=== PATIENT | male | born 1945 | race Caucasian/White ===

== ENCOUNTER 2024-10-04 11:15 | Outpatient (AMB) | payer OTHER, SELFPAY ==
--- NOTE | 2024-10-04 11:17 | MHC.OFFVIS ---
Vital Signs 10/04/24 11:20 Height 6 ft Weight 179 lb BMI 24.3 BP 112/64 Blood Pressure Location Rt brachial Position Sitting Pulse 94 Pulse Source Pulse Oximeter Pulse Oximetry (%) 99 Oxygen Delivery Method Room Air Intake Visit Reasons: ENP- Hand Tremors Intake Note: Patient referred by [place] for hand tremors Allergies aspirin Allergy (Unknown, Verified 10/04/24 11:20) Unknown HPI Comments Details: 79y/o Right handed male comes for evaluation of tremors. He started noticing tremors in his left hand 3-4 years ago and spread to his right hand. The tremors are mostly with posture and action but with stress it can be at rest . He was seen by at [facility]- had MRI - showed a small stroke in Basal ganglia.He was started on carbidopa/levodopa 25/100 tid and it is helping. Memory- good , occasional lapses Mood- mild depression Sleep- loud snoring , sleep study showed mild SHRUTHI , active dreams Speech- fine He has some nighttime drooling Handwriting is worse No problems with eating dressing showering turning in bed. Gait- mild balance issues , shuffles. No falls Bowel movements- constipation- takes miralax He has occasional dizziness with posture changes. 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 Localized edema Hypertensive heart disease without CHF Hyperparathyroidism Cerebral infarction BPH (benign prostatic hyperplasia) Osteoporosis Surgical History History of pancreatic surgery History of hip replacement Family History Father Cancer Social History Alcohol intake: never Patient Tobacco Use Status: Never used Tobacco Physical Exam Vital Signs: Last Vital Signs Pulse 94 10/04/24 11:20 BP 112/64 10/04/24 11:20 Pulse Ox 99 10/04/24 11:20 Oxygen Delivery Method Room Air 10/04/24 11:20 BMI result Body Mass Index 24.3 Const General: cooperative, healthy appearing, comfortable and no acute distress Nutritional Appearance: average body habitus Orientation/consciousness: patient oriented x3 Limitations: no limitations Eyes Pupils: Equal, round and reactive pupils present Neuro Other: Mallampatti grade 4 Mild decreased facial expression and blink No tremors Mild Cogwheel rigidity - right UE 2+ FFM and foot taps - decreased nino R>L Foot taps - mildly decreased R>L Gait- mild off balance , mild stoop Decreased arm swings nino decreased facial expression on the right - asymmetry General: patient oriented x3, moves all extremities and no focal motor deficits Cranial nerves: Yes Facial sensation intact/muscles of mastication intact, Yes Equal, round and reactive pupils present, Yes Bilaterally intact EOM present, Yes Nystagmus not present, Yes Midline tongue present and Yes Ability to bilaterally elevate shoulders present Cognition (Neuro): normal cognition Motor exam (neuro): 5/5 motor strength present throughout Deep tendon reflexes (DTR's): Right triceps reflex intensity grade: 1+, Left triceps reflex intensity grade: 1+, Rt Biceps (C5, C6): 1+, Left biceps reflex intensity grade: 1+, Right brachioradialis reflex intensity grade: 1+, Left brachioradialis reflex intensity grade: 1+, Right patellar reflex intensity grade: 1+ and Left patellar reflex intensity grade: 1+ Coordination: [id number]-[id number] test normal Assessment & Plan Assessment & Plan (1) Parkinsons: Comment: secondary Code(s): G20.A1 - Parkinson's disease without dyskinesia, without mention of fluctuations Category: Medical Qualifiers: Dyskinesia presence: without dyskinesia Fluctuating manifestations: without fluctuating manifestations Qualified Code(s): G20.A1 - Parkinson's disease without dyskinesia, without mention of fluctuations Plan Continue carbidopa/levodopa 25/100 tid Entacapone 200 mg tid PT for gait training [facility] Orders: Orders PT Evaluation and Treatment Today G20.A1 - Parkinson's disease without dyskinesia, without mention of fluctuations Medications: New carbidopa-levodopa 25-100 mg 1 tab PO TID 90 days 270 tabs 6RF entacapone 200 mg PO 3XD 90 days 270 tabs 6RF Coding Level of Care Code New Pt Level 4 (71655) Diagnoses Parkinson's disease without dyskinesia or fluctuating manifestations G20.A1 Dyskinesia presence: without dyskinesia Fluctuating manifestations: without fluctuating manifestations
[2024-10-04 11:20] VITALS: BP 112/64; PULSE 94; O2SAT 99; BMI 24.3
--- OUTSIDE RECORDS SUMMARY | 2024-10-04 12:31 | XMS_ITS | Clinical Summary ---
Author Organization [address] [place] [address] [place] [phone] Phone Care Team Providers Care Warehouse Consultant Name Role Phone Phoebe Radford MD Primary Care Provider [phone] Encounters Date Type Department Care Team Description 07/05/2024 2:45 PM EST Office Visit Walk-[facility] - [address] [phone] Phi Guido PA Cellulitis of left upper extremity (Primary Dx) from Last 3 Months Social History Tobacco Use Types Packs/Day Years Used Date Smoking Tobacco: Never Assessed Sex and Gender Information Value Date Recorded Sex Assigned at Not on file Legal Sex Male 2:50 AM EST Gender Identity Not on file Sexual Orientation Not on file Plan of Treatment Health Maintenance Due Date Last Done Comments Diabetes: Annual Foot Exam 1955 Diabetes: Annual Retina Eye Exam 1955 Pneumococcal Vaccine: 50+ Years (2 of 2 - PPSV23) 12/26/2014 10/31/2014, 11/25/2010 Cholesterol Screening (Lipid Panel) 09/15/2023 Depression Screening 09/15/2023 Falls Risk Assessment 09/15/2023 Hepatitis C Screening 09/15/2023 Medicare Annual Wellness Visit 09/15/2023 Social Influencers of Health Screening 09/15/2023 Diabetes: Annual GFR (Glomerular Filtration Rate) 01/30/2024 01/29/2023, 01/29/2023 Diabetes: Annual Urine Albumin-Creatinine Ratio (uACR) 07/05/2024 Diabetes: Blood Sugar Control Test (HGBA1C) 07/05/2024 Hypertension/CHF/CAD Annual BMP Blood Test 07/05/2024 01/29/2023, 01/29/2023 DTaP,Tdap,and Td Vaccines (3 - Td or Tdap) 2025 2015, 11/25/2010 Zoster Vaccines Completed 12/09/2017, 09/18, 09/06/2009 RSV Immunization Patients 60+ Years Old Completed 06/29/2023 COVID-19 Vaccine Completed 05/25/2024, 04/2023, 02/11/2022, Additional history exists Influenza Vaccine Completed 05/25/2024, , 05/25/2023, Additional history exists HIB Vaccines Aged Out No longer eligi ble based on patient's age to complete this topic HPV Vaccines Aged Out No longer eligi ble based on patient's age to complete this topic Hepatitis A Vaccines Aged Out No long er eligible based on patient's age to complete this topic Hepatitis B Vaccines Aged Out No long er eligible based on patient's age to complete this topic IPV Vaccines Aged Out No longer eligi ble based on patient's age to complete this topic MMR Vaccines Aged Out No longer eligi ble based on patient's age to complete this topic Meningococcal ACWY Vaccine Aged Out N o longer eligible based on patient's age to complete this topic Meningococcal B Vacine Aged Out No lo nger eligible based on patient's age to complete this topic RSV Immunization Patients Under 20 months Aged Out No longer eligible based on patient's age to complete this topic Varicella Vaccines Aged Out No longer eligible based on patient's age to complete this topic Insurance MEDICARE [facility] Advance Directives Documents on File Type Date Recorded Patient Sterilization Technician Expl anation Health Care Decision (hx) 06/03/2013 AD MCDANIEL DIRECTIVE Health Care Decision (hx) 06/03/2013 AD MCDANIEL DIRECTIVE Health Care Decision (hx) 05/25/2013 AD MCDANIEL DIRECTIVE Health Care Decision (hx) 05/25/2013 AD MCDANIEL DIRECTIVE Care Teams Warehouse Consultant Relationship Specialty Start Date End Date Phoebe Radford MD [address] [place] [address] PCP - General Internal Medicine 07/05/24
--- OUTSIDE RECORDS SUMMARY | 2024-10-04 12:31 | XMS_ITS | Clinical Summary ---
Author Organization [facility] Address [address] [place] [address] Care Team Providers Care Naphthalene Operator Name Role Phone Phoebe Radford MD Primary Care Provider [phone] Allergies Active Allergy Reactions Criticality Noted Date Comments Dust Mite Extract Unknown/Patient and Family Unable to Define Medium 01/29/2023 Trichophyton Unknown/Patient and Family Unable to Define Medium 01/29/2023 Social History Tobacco Use Types Packs/Day Years Used Date Smoking Tobacco: Never Assessed Sex and Gender Information Value Date Recorded Sex Assigned at Male 01/29/2023 7:52 PM EDT Gender Identity Male 01/29/2023 7:52 PM EDT Sexual Orientation Heterosexual (straight) 01/29 7:52 PM EDT Last Filed Vital Signs Vital Sign Reading Time Taken Comments Blood Pressure 156/67 01/29/2023 6:18 PM EDT Pulse 71 01/29/2023 6:18 PM EDT Temperature 36.7 ??C (98 ??F) 01/29/2023 6:18 PM EDT Respiratory Rate 18 01/29/2023 6:18 PM EDT Oxygen Saturation 99% 01/29/2023 8:52 PM EDT Inhaled Oxygen Concentration - - Weight - - Height - - Body Mass Index - - Plan of Treatment Health Maintenance Due Date Last Done Comments Hepatitis C Virus Screening 1945 DTaP/Tdap/Td Vaccines (1 - Tdap) 1964 Pneumococcal Vaccines 50+ (1 of 1 - PCV) 1995 Zoster (Shingles) Vaccine (1 of 2) 1995 RSV Vaccine 60 years and old er and Patients (1 - 1-dose 75+ series) 2020 Influenza Vaccine 03/17/2024 COVID-19 Vaccine ( - 2023-2 5 season) 2024 Hepatitis B Vaccines Aged Out No long er eligible based on patient's age to complete this topic Care Teams Naphthalene Operator Relationship Specialty Start Date End Date Phoebe Radford MD [address] [place] [address] PCP - General Internal Medicine 01/29/23
== END 2024-10-04 11:58 | disposition home or self-care (01) ==
PROVIDERS: PCP Family Medicine; Visit Provider Psychiatry & Neurology Neurology
DX: G20.A1 Parkinson's disease without dyskinesia, without mention of fluctuations (principal)
CPT/HCPCS: 99204

== ENCOUNTER → 2024-10-04 11:15 | Outpatient (BNVA) | payer OTHER, SELFPAY | PROVIDERS: PCP Family Medicine; Visit Provider Psychiatry & Neurology Neurology | DX: G20.A1 Parkinson's disease without dyskinesia, without mention of fluctuations (principal) | CPT/HCPCS: 99202 ==

== ENCOUNTER 2025-04-05 10:37 | Outpatient (AMB) | payer OTHER, SELFPAY ==
--- NOTE | 2025-04-05 10:39 | A.OFFVIS_ITS ---
Vital Signs 04/05/25 10:40 Height 6 ft Weight 180 lb 4 oz BMI 24.4 BP 122/64 Blood Pressure Location Rt brachial Position Sitting Pulse 80 Pulse Source Pulse Oximeter Pulse Oximetry (%) 96 Oxygen Delivery Method Room Air Intake Visit Reasons: Follow up Hand Tremors Intake Note: Follow up Parkinson's Engraver Apprentice Decorative Required: No Accompanied by: Self / Same As Patient Allergies aspirin Allergy (Unknown, Verified 04/05/25 10:43) Unknown Medication List - Last Reconciled 04/05/25 by Harnii Johnston MD amlodipine 10 mg PO DAILY amoxicillin 2,000 mg PO atorvastatin 40 mg PO DAILY blood sugar diagnostic (Accu-Chek Guide test strips) As directed blood-glucose sensor As directed calcium citrate mg PO carbidopa-levodopa 25-100 mg 1 tab PO TID 90 days cholecalciferol (vitamin D3) 50 mcg PO cyclosporine 0.05% 1 drp ophthalmic (eye) Q12H denosumab 60 mg subcut [id number] duloxetine 60 mg PO DAILY entacapone 200 mg PO 3XD 90 days gabapentin 900 mg PO BEDTIME gabapentin 300 mg PO DAILY hydrochlorothiazide 25 mg PO DAILY hylan g-f 20 (Synvisc-One) mg intra-articular insulin aspart U-100 (Novolog U-100 Insulin aspart) 20 units subcut TID lidocaine 5% topical wpcqxr-xhamkedw-tnvvteh 24,000-76,000 -120,000 unit (Creon) 3 caps PO TID lisinopril 40 mg PO DAILY omeprazole 20 mg PO DAILY sennosides 8.6 mg PO BEDTIME sildenafil 100 mg PO DAILY PRN tamsulosin mg PO testosterone cypionate 100 mg IM Q2W HPI Comments Details: 79y/o Right handed male comes for follow up of parkinsons . He has spinal stenosis and is seeing pain management. He has more drooling He frequently forgets his medications. He is not sleeping well because of back pain , restless legs etc PT did not help his back He is taking gabapentin 900mg qhs History from initial visit -. He started noticing tremors in his left hand 3-4 years ago and spread to his right hand. The tremors are mostly with posture and action but with stress it can be at rest . He was seen by at [facility]- had MRI - showed a small stroke in Basal ganglia.He was started on carbidopa/levodopa 25/100 tid and it is helping. Memory- good , occasional lapses Mood- mild depression Sleep- loud snoring , sleep study showed mild SHRUTHI , active dreams Speech- fine He has some nighttime drooling Handwriting is worse No problems with eating dressing showering turning in bed. Gait- mild balance issues , shuffles. No falls Bowel movements- constipation- takes miralax He has occasional dizziness with posture changes. 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 Localized edema Hypertensive heart disease without CHF Hyperparathyroidism Cerebral infarction BPH (benign prostatic hyperplasia) Osteoporosis Surgical History History of pancreatic surgery History of hip replacement Family History Father Cancer Social History Alcohol intake: never Patient Tobacco Use Status: Never used Tobacco Physical Exam Vital Signs: Last Vital Signs Pulse 80 04/05/25 10:40 BP 122/64 04/05/25 10:40 Pulse Ox 96 04/05/25 10:40 Oxygen Delivery Method Room Air 04/05/25 10:40 BMI result Body Mass Index 24.4 Const General: cooperative, healthy appearing, comfortable and no acute distress Nutritional Appearance: average body habitus Orientation/consciousness: patient oriented x3 Limitations: no limitations Eyes Pupils: Equal, round and reactive pupils present Neuro Other: Mallampatti grade 4 Mild decreased facial expression and blink No tremors Mild Cogwheel rigidity - right UE 1+ FFM and foot taps - decreased inno R>L Foot taps - mildly decreased R>L Gait- mild off balance , mild stoop Decreased arm swings nino decreased facial expression on the right - asymmetry General: patient oriented x3, moves all extremities and no focal motor deficits Cranial nerves: Yes Facial sensation intact/muscles of mastication intact, Yes Equal, round and reactive pupils present, Yes Bilaterally intact EOM present, Yes Nystagmus not present, Yes Midline tongue present and Yes Ability to bilaterally elevate shoulders present Cognition (Neuro): normal cognition Motor exam (neuro): 5/5 motor strength present throughout Coordination: oizkry-kw-dluu test normal Assessment & Plan Assessment & Plan (1) Parkinsons: Comment: secondary Code(s): G20.A1 - Parkinson's disease without dyskinesia, without mention of fluctuations Category: Medical Qualifiers: Dyskinesia presence: without dyskinesia Fluctuating manifestations: without fluctuating manifestations Qualified Code(s): G20.A1 - Parkinson's disease without dyskinesia, without mention of fluctuations Plan Continue carbidopa/levodopa 25/100 tid Entacapone 200 mg tid PT for gait training Coding Level of Care Code Est Pt Level 4 (31212) Complex EM visit Add On G2211 Diagnoses Parkinson's disease without dyskinesia or fluctuating manifestations G20.A1 Dyskinesia presence: without dyskinesia Fluctuating manifestations: without fluctuating manifestations
[2025-04-05 10:40] VITALS: BP 122/64; PULSE 80; O2SAT 96; BMI 24.4
--- OUTSIDE RECORDS SUMMARY | 2025-04-05 11:56 | XMS_ITS | Clinical Summary ---
Author Organization [address] [place] [address] [place] [phone] Phone Care Team Providers Care Principal System Software Engineer Name Role Phone Phoebe Radford MD Primary Care Provider [phone] Social History Tobacco Use Types Packs/Day Years [...] 10/31/2014, 11/25/2010 Cholesterol Screening (Lipid Panel) 09/15/2023 Falls Risk Assessment 09/15/2023 Hepatitis C Screening 09/15/2023 Medicare Annual Wellness Visit 09/15/2023 Social Influencers of Health Screening 09/15/2023 Diabetes: Annual GFR (Glomerular Filtration Rate) 01/30/2024 01/29/2023, 01/29/2023 Diabetes: Annual Urine Albumin-Creatinine Ratio (uACR) 07/05/2024 Diabetes: Blood Sugar Control Test (HGBA1C) 07/05/2024 Hypertension/CHF/CAD Annual BMP Blood Test 07/05/2024 01/29/2023, 01/29/2023 Depression Screening 08/17/2024 COVID-19 Vaccine (7 - Moderna risk season) 2024 05/25/2024, 05/25/2023, 02/11/2022, Additional history exists Influenza Vaccine (#1) 2025 , 06/01/2023, 05/25/2023, Additional history exists DTaP,Tdap,and Td Vaccines (3 - Td or Tdap) 2025 2015, 11/25/2010 Zoster Vaccines Completed 12/09/2017, 09/18, 09/06/2009 RSV Immunization Adult Patients Completed 06/29/2023 HIB Vaccines Aged Out No longer eligi [...] age to complete this topic Meningococcal B Vaccine Aged Out No l onger eligible based on patient's age to complete this topic RSV Immunization Patients Under 20 months Aged Out No longer eligible based on patient's age to complete this topic Varicella Vaccines Aged Out No longer eligible based on patient's age to complete this topic Insurance [facility] CHRI[place]HER [place], [place] [address] MEDICARE [facility] Advance Directives Documents on File Type Date Recorded Patient Chief Operator Expl anation Health Care Decision (hx) 06/03/2013 AD MCDANIEL DIRECTIVE Health Care Decision (hx) 06/03/2013 AD MCDANIEL DIRECTIVE Health Care Decision (hx) 05/25/2013 AD MCDANIEL DIRECTIVE Health Care Decision (hx) 05/25/2013 AD MCDANIEL DIRECTIVE Care Teams Principal System Software Engineer Relationship Specialty Start Date End Date Phoebe Radford MD PCP - General Internal Medicine 07/05/24
--- OUTSIDE RECORDS SUMMARY | 2025-04-05 11:56 | XMS_ITS | Encounter Summary ---
Author Organization [facility] Address [address] [place] [address] Phone Care Team Providers Care Relationship Executive Name Role Phone Alonso Vann MD Primary Care Provider Maria L Forrester MD, MPH Unavailable Mariam Chang MD Unavailable [phone] Aaron Hernandez NP Unavailable Encounter Details Date Type Department Care Team (Late st Contact Info) Description 09/26/2015 Transcribe Orders [facility] [address] [place] [address] Bakari Campos [address] [place] [phone] [email or web address] Social History Tobacco Use Types Packs/Day Years Used Date Smoking Tobacco: Unknown Sex and Gender Information Value Date Recorded Sex Assigned at Not on file Legal Sex Male 5:38 PM EST Gender Identity Not on file Sexual Orientation Not on file documented as of this encounter Plan of Treatment Not on file documented as of this encounter Results * CT Abdomen/Pelvis Outside (No Interpreta (09/26/2015 8:15 AM EST) Narrative SYSTEMGENERATED, DOCUMENTATION - 09/26/2015 8:12 AM EST This study is for PACS storage only and not for interpretation. 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[facility] Supplemental Conversion 06/23/2014 06/23/2014 03/13/2023 1:26 AM EDT documented as of this encounter Care Teams Relationship Executive Relationship Specialty Start Date End Date Alonso Vann MD PCP - General 12/21/14 Maria L Forrester MD, MPH [address] [place] [phone] [email or web address] Historical LMR Provider 12/30/14 08/24/21 Mariam Chang MD [address] [place] [phone] Internal Medicine 12/20/15 Aaron Hernandez NP [address] [place] [phone] Family Medicine 12/20/15 documented as of this encounter Additional Source Comments The information contained in this document represents components of the legal health record. It is not the complete legal health record.[facility]
--- OUTSIDE RECORDS SUMMARY | 2025-04-05 11:56 | XMS_ITS | Clinical Summary ---
Author Organization [facility] Address [address] [place] [address] Care Team Providers Care Plant Security Guard Name Role Phone Phoebe Rafdord MD Primary Care Provider [phone] Allergies Active Allergy Reactions Criticality Noted Date Comments Dust Mite Extract Unknown/Patient and Family Unable to Define Medium 01/29/2023 Trichophyton Unknown/Patient and Family Unable to Define Medium 01/29/2023 Social History Tobacco Use Types Packs/Day Years Used Date Smoking Tobacco: Never Assessed Sex and Gender Information Value Date Recorded Sex Assigned at Male 01/29/2023 7:52 PM EDT Legal Sex Male 6:14 PM EDT Gender Identity Male 01/29/2023 7:52 PM EDT Sexual Orientation Heterosexual (straight) 01/29 7:52 PM EDT Last Filed Vital Signs Vital Sign Reading Time Taken Comments Blood Pressure 156/67 01/29/2023 6:18 PM EDT Pulse 71 01/29/2023 6:18 PM EDT Temperature 36.7 C (98 F) 01/29/2023 6:18 PM EDT Respiratory Rate 18 [...] Patients (1 - 1-dose 75+ series) 2020 COVID-19 Vaccine ( - 2023-2 5 season) 2024 Influenza Vaccine 03/17/2025 Hepatitis B Vaccines Aged Out No long er eligible based on patient's age to complete this topic Insurance FOR [employer] MEDICARE PART A & B Care Teams Plant Security Guard Relationship Specialty Start Date End Date Phoebe Radford MD [address] [place] [address] PCP - General Internal Medicine 01/29/23
--- OUTSIDE RECORDS SUMMARY | 2025-04-05 11:56 | XMS_ITS ---
Author Name [facility] Organization Unknown Encounters Encounter Type Encounter Reason Primary Diagnosis Location Date Emergency Right lower quadrant pain Right lower quadrant pain [facility] 01/29/2023 Care Team Organization Name Specialty Phone Email Start Date End [place] [facility] ABRIL MARTIN Primary Care 01/29/2023 01/29/2023 [facility] 01/29/2023
== END 2025-04-05 11:20 | disposition home or self-care (01) ==
LOC: HO.HSMS 10:38
PROVIDERS: PCP Family Medicine; Visit Provider Psychiatry & Neurology Neurology
DX: G20.A1 Parkinson's disease without dyskinesia, without mention of fluctuations (principal)
CPT/HCPCS: 99214; G2211

== ENCOUNTER → 2025-04-05 10:37 | Outpatient (BNVA) | payer OTHER, SELFPAY | PROVIDERS: PCP Family Medicine; Visit Provider Psychiatry & Neurology Neurology | DX: G20.A1 Parkinson's disease without dyskinesia, without mention of fluctuations (principal) | CPT/HCPCS: 99212 ==